=== PATIENT | male | born 2000 | race Caucasian/White ===

== ENCOUNTER 2021-03-14 19:45 | Emergency (ER) | payer OTHER ==
[2021-03-14 19:54] VITALS: BP 148/76
--- NOTE | 2021-03-14 21:04 | ED Physician Documentation ---
PD HPI UPPER EXT INJURY - Stated complaint Stated Complaint: RT SHOULDER INJ - Chief complaint Chief Complaint: Ext Problem - History obtained from History obtained from: Patient - History of Present Illness Location: Right, Shoulder Type of injury: Other (no injury) Where injury occurred: Work Timing - onset: Enter time (13:00), Today Timing - details: Abrupt onset Improved by: Rest Worsened by: Moving, Palpating Associated symptoms: No: Weakness, Numbness, Tingling, Swelling, Discolored Recently seen: Not recently seen - Additonal information Additional information: patient c/o sudden onset right shoulder pain approximately 1 PM when lifting heavy equipment. He says that the shoulder was "sore" the past few weeks without causative incident. He is right-hand dominant. Review of Systems Musculoskeletal: reports: Joint pain. denies: Neck pain, Back pain, Extremity pain, Extremity swelling, Joint swelling Neurologic: denies: Focal weakness, Numbness PD PAST MEDICAL HISTORY - Past Medical History Past Medical History: No - Past Surgical History Past Surgical History: Yes - Allergies Allergies/Adverse Reactions: Allergies Allergy/AdvReac Type Severity Reaction Status Date / Time No Known Drug Allergies Allergy Verified 03/14/21 19:56 - Social History Does the pt smoke?: Yes Smoking Status: Current every day smoker Does the pt drink ETOH?: Yes Does the pt have substance abuse?: No - Immunizations Immunizations are current?: Yes PD ED PE NORMAL - Vitals Vital signs reviewed: Yes - General General: Alert and oriented X 3, No acute distress, Well developed/nourished - Derm Derm: Normal color, Warm and dry - Extremities Extremities: No deformity, No edema - Neuro Neuro: No motor deficit, No sensory deficit PD ED PE EXPANDED - Extremities Extremities: Tenderness (right shoulder TTP anterior and lateral surfaces), Other (FROM but pain is exacerbated with abduction, flexion at shoulder) Results - Vitals Vitals: Vital Signs - 24 hr 03/14/21 03/14/21 19:50 22:30 Temperature 36.1 C L Heart Rate 82 71 Respiratory 17 15 Rate Blood Pressure 148/76 H O2 Saturation 98 97 Oxygen O2 Source Room air - Rads (name of study) right shoulder xrays Radiology: Prelim report reviewed, See rad report PD MEDICAL DECISION MAKING - ED course Complexity details: reviewed results, re-evaluated patient, considered differential, d/w patient ED course: Sudden onset right shoulder pain when heavy lifting this evening. Normal right shoulder xrays. Will treat as shoulder sprain with splint and rest, follow up with primary care provider for reevaluation after 2-3 days Departure - Departure Disposition: 01 Home, Self Care Clinical Impression: Shoulder sprain Condition: Good Instructions: ED Sprain Shoulder, ED Sling Follow-Up: [facility]go[facility] [Provider Group] Comments: The xrays are normal, which is expected for a sprain; in other words, normal xrays are reassuring but does not mean there is no injury. Most patients with normal xrays with suspected sprain just need a few days for the injury to resolve. Sometimes it can take a week or longer. The sling should help speed the healing process. Some sprains are more complicated and need more treatment than this. Follow up with your primary care provider for reevaluation of the shoulder injury. Forms: Activity restrictions Discharge Date/Time: 03/14/21 22:30
--- NOTE | 2021-03-14 21:56 | XRAY Report ---
PROCEDURE: Shoulder 3 View RT INDICATIONS: RIGHT shoulder pain TECHNIQUE: 3 views of the shoulder were acquired. COMPARISON: None. FINDINGS: Bones: No fractures or dislocations. No suspicious bony lesions. Visualized ribs appear intact. Soft tissues: No suspicious soft tissue calcifications. IMPRESSION: No acute finding. Reviewed by: Otis Andre MD on 03/14/2021 9:55 PM PST Approved by: Otis Andre MD on 03/14/2021 9:55 PM [facility] Station ID: [id number]
== END 2021-03-14 22:30 | disposition home or self-care (01) ==
LOC: ED 19:45
DX: S43.401A Unspecified sprain of right shoulder joint, initial encounter (principal); X50.0XXA Overexertion from strenuous movement or load, initial encounter; F17.200 Nicotine dependence, unspecified, uncomplicated
CPT/HCPCS: 99282; 99283

== ENCOUNTER 2021-05-19 11:51 | Emergency (ER) | payer OTHER ==
--- NOTE | 2021-05-19 12:13 | ED Physician Documentation ---
History of Present Illness - Stated complaint Stated Complaint: PANIC ATTACK - Chief complaint Chief Complaint: Cardiac - Additonal information Additional information: 20-year-old male is brought to the emergency department for evaluation after a panic attack. 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 Patient states that he has a history of panic attacks in the past. He states that there is just a lot going on but he does not want to be more forthcoming than that. He denies alcohol or drug use. Denies any thoughts of harm to self. He states that he tried therapy when he was younger but did not like it and is not interested in therapy today. At this time the panic attack has resolved and he no longer has chest pain or pressure. Patient currently on oxycodone and amoxicillin after wisdom tooth removal Review of Systems Constitutional: denies: Fever, Chills Ears: reports: Reviewed and negative Throat: reports: Reviewed and negative Cardiac: reports: Chest pain / pressure, Palpitations Respiratory: reports: Reviewed and negative GI: reports: Reviewed and negative : reports: Reviewed and negative Skin: reports: Reviewed and negative Musculoskeletal: reports: Reviewed and negative Neurologic: reports: Reviewed and negative Psychiatric: reports: Anxiety. denies: Depressed, Suicidal, Homicidal, Hallucinations, Delusions, Insomnia PD PAST MEDICAL HISTORY - Past Surgical History Past Surgical History: Yes - Allergies Allergies/Adverse Reactions: Allergies Allergy/AdvReac Type Severity Reaction Status Date / Time No Known Drug Allergies Allergy Verified 03/14/21 19:56 - Social History Does the pt smoke?: Yes Smoking Status: Current every day smoker Does the pt drink ETOH?: Yes Does the pt have substance abuse?: No - Immunizations Immunizations are current?: Yes PD ED PE NORMAL - General General: Alert and oriented X 3, No acute distress, Well developed/nourished - HEENT HEENT: Atraumatic, Moist mucous membranes - Neck Neck: Supple, no meningeal sign, No adenopathy - Cardiac Cardiac: RRR, No murmur - Respiratory Respiratory: No respiratory distress - Abdomen Abdomen: Normal bowel sounds, Soft, Non tender - Back Back: No CVA TTP - Derm Derm: Normal color, Warm and dry - Extremities Extremities: No deformity, No tenderness to palpate - Neuro Neuro: Alert and oriented X 3, 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 Good eye contact. Calm demeanor. Forward thinking), Normal affect Results - Vitals Vitals: Vital Signs - 24 hr 05/19/21 05/19/21 11:52 12:21 Temperature 37.0 C Heart Rate 77 80 Respiratory 18 18 Rate Blood Pressure 133/79 H 117/73 O2 Saturation 100 100 Oxygen O2 Source Room air - EKG (time done) 1201 Rate: Rate (enter#) (76) Rhythm: NSR [place]: Normal Intervals: Normal OR QRS: Normal Ischemia: ST elevation c/w repol Compare to prior EKG: Old EKG unavailable Computer interpretation: Agree with computer - Labs Labs: Laboratory Tests 05/19/21 05/19/21 05/19/21 12:17 12:18 12:18 Sodium 137 Potassium 4.0 Chloride 102 Carbon Dioxide 27 Anion Gap 8.0 BUN 13 Creatinine 0.7 Estimated GFR (MDRD) 144 Glucose 93 Calcium 9.2 Troponin I High Sens < 2.3 L Urine Opiates Screen NEGATIVE Ur Oxycodone Screen POSITIVE H Urine Methadone Screen NEGATIVE Ur Propoxyphene Screen NEGATIVE Ur Barbiturates Screen NEGATIVE Ur Tricyclics Screen NEGATIVE Ur Phencyclidine Scrn NEGATIVE Ur Amphetamine Screen NEGATIVE U Methamphetamines Scrn NEGATIVE U Benzodiazepines Scrn NEGATIVE Urine Cocaine Screen NEGATIVE U Cannabinoids Screen NEGATIVE PD MEDICAL DECISION MAKING - ED course Complexity details: reviewed results, re-evaluated patient, considered differential, d/w patient ED course: 20-year-old male who is active duty [employer] presents emergency department after having a panic attack while at work this morning. He is scheduled to deploy to [place] in a few hours. He does report a previous history of anxiety and panic attacks. He has no thoughts of harm to himself or others. He did present with some chest pain as well. Reports that his father had a myocardial infarction at an early age. Here in the ER he appears very well. Free of chest pain at the time of evaluation. Screening EKG is nonischemic troponin is negative. Chest x-ray unremarkable. He contracts for safety. We discussed the concern for recurrent panic attack and worry. He declines to speak with the social staff worker and feels comforted knowing that his labs are unremarkable. He is requesting to be discharged home so that he may deploy. His [employer] is aware that he is here in the emergency department after having a panic attack. Patient is encouraged to follow-up with [facility] to discuss talk therapy to address his anxiety and worry but again he declines to speak with social work today Departure - Departure Disposition: Home, Self Care Clinical Impression: Panic attack Condition: Stable Record reviewed to determine appropriate education?: Yes Instructions: ED Panic Attack Comments: Popeye givens are seen today in the emergency department after having a panic attack while at work for the [employer]. Your screening labs and EKG are all essentially normal. While here in the emergency department your symptoms have started to resolve or improve. You have declined to speak with social work today. I do encourage you to discuss this ED visit with your [employer] as well as to consider mental health counseling and resources for longer-term management of anxiety and worry. If at any point you ever feel unsafe, feel that you are at risk to harm yourself or others please do not hesitate to reach out, call 911 or return immediately to the emergency department.
[2021-05-19 12:22] VITALS: BP 117/73
[2021-05-19 12:27] LABS: MUDS CUTOFF CONCENTRATIONS CUTOFF CONC BELOW:
[2021-05-19 12:34] LABS: CALCIUM 9.2 mg/dL (8.5-10.3); CREATININE 0.7 mg/dL (0.6-1.2)
--- OUTSIDE RECORDS SUMMARY | 2021-05-19 12:41 | EXTERNAL MEDICAL SUMMARY RPT | Continuity of Care Document ---
:2000 Author Organization [facility] Address [address] [place] [address] Phone Care Team Providers Name Role Phone LEANDRO OLSON, Seth Ledezma Unavailable Unavailabl e Allergies No information. Encounters No information. Medications No information. Problems date description facility 20210327 Tobacco smoking status [facility] All 20210327 Pain of right shoulder joint All 20210327 Pain in right shoulder All 20210327 Pain in joint involving shoulder region All 20210327 Never smoker All 20210327 MRI SHOULDER WO - LT All 20210327 Details of drug misuse behavior All 20210327 Alcohol use All Results No information. Vital Signs date measurement value source 20210327 weight_standard 219.4 lb 20210327 weight_metric 99.52 kg 20210327 temperature_standard 97.8 F 20210327 temperature_metric 36.56 C 20210327 respiration_rate 14 /min 20210327 height_standard 72 in 20210327 height_metric 182.88 cm 20210327 heart_rate 73 /min 20210327 BP_systolic 119 mm[Hg] 20210327 BP_diastolic 73 mm[Hg] 20210327 BMI 29.86 kg/m2
[2021-05-19 13:08] LABS: AMPHETAMINE SCREEN,URINE NEGATIVE (NEGATIVE); BARBITURATE SCREEN,UR NEGATIVE (NEGATIVE); BENZODIAZEPINES SCREEN, URINE NEGATIVE (NEGATIVE); COCAINE SCREEN URINE NEGATIVE (NEGATIVE); METHADONE SCREEN, URINE NEGATIVE (NEGATIVE); METHAMPHETAMINES SCREEN, URINE NEGATIVE (NEGATIVE); OPIATE SCREEN, URINE NEGATIVE (NEGATIVE); OXYCODONE SCREEN, URINE POSITIVE (NEGATIVE); PROPOXYPHENE SCREEN, URINE NEGATIVE (NEGATIVE); THC CANNABINOID SCREEN, URINE NEGATIVE (NEGATIVE); TRICYCLIC ANTIDEPRESSANT,URINE NEGATIVE (NEGATIVE)
== END 2021-05-19 13:20 | disposition home or self-care (01) ==
LOC: EDUNIT# → ED 11:51
DX: F41.0 Panic disorder [episodic paroxysmal anxiety] (principal); F17.200 Nicotine dependence, unspecified, uncomplicated
CPT/HCPCS: 36415; 80048; 80306; 84484; 93005; 99282; 99283

== ENCOUNTER 2021-12-25 16:07 | Emergency (ER) | payer OTHER ==
--- OUTSIDE RECORDS SUMMARY | 2021-12-25 16:40 | EXTERNAL MEDICAL SUMMARY RPT | Continuity of Care Document ---
:2000 Author Organization [facility] Address [address] [place] [address] Phone Care Team Providers Name Role Phone Unavailable Unavailable Unavailable Darin Ritter Robert Unavailable Unavailable Allergies No information. Encounters No information. Functional Status No information. Immunizations No information. Medications date description facility [id number]+0000 meloxicam All [id number]+0000 meloxicam All [id number]+0000 meloxicam All [id number]+0000 meloxicam All Problems No information. Procedures date description facility [id number]+0000 Visit Code Hold All Results/Labs No information. Social History No information. Vital Signs date measurement value units [id number]+0000 BMI BMI 27.77 kg/m2 80501645183315+0000 BP_diastolic BP_diastolic 74 mmHg [id number]+0000 BP_systolic BP_systolic 115 mmHg 74347904012190+0000 heart_rate heart_rate 76 /min 88286939674201+0000 height_metric height_metric 182.88 cm 65602077458007+0000 height_standard height_standard 72 in [id number]+0000 respiration_rate respiration_rate 18 /min 10839929980171+0000 temperature_metric temperature_metric 36.78 C [id number]+0000 temperature_standard temperature_standard 9 8.2 F 88311442952650+0000 weight_metric weight_metric 92.53 kg 92936672510686+0000 weight_standard weight_standard 204 lb
[2021-12-25 20:22] VITALS: BP 142/75
--- NOTE | 2021-12-25 20:30 | ED Physician Documentation ---
History of Present Illness - Stated complaint Stated Complaint: RT SHOULDER PX - Chief complaint Chief Complaint: Ext Problem - Additonal information Additional information: 21-year-old male presents emergency department for evaluation of acute right shoulder pain after using some strengthening bands at the gym and pushing forward when he felt a sudden pop in the shoulder. Since then he has some minimal pain with movement. No swelling. He reports ports a sprain injury about 10 months ago that has never fully healed. No fevers. No swelling. No trauma. Review of Systems Constitutional: reports: Reviewed and negative Cardiac: reports: Reviewed and negative Respiratory: reports: Reviewed and negative GI: reports: Reviewed and negative Skin: reports: Reviewed and negative Musculoskeletal: reports: Joint pain PD PAST MEDICAL HISTORY - Past Medical History Past Medical History: No - Past Surgical History Past Surgical History: Yes - Allergies Allergies/Adverse Reactions: Allergies Allergy/AdvReac Type Severity Reaction Status Date / Time No Known Drug Allergies Allergy Verified 03/14/21 19:56 - Social History Does the pt smoke?: Yes Smoking Status: Current every day smoker Does the pt drink ETOH?: Yes Does the pt have substance abuse?: No - Immunizations Immunizations are current?: Yes PD ED PE EXPANDED - General General: Alert, No acute distress - Extremities Extremities: Right shoulder (Mild tenderness with palpation of the anterior join t especially with movement. Negative drop arm and negative empty can. Nearly full range of motion.) Results - Vitals Vitals: Vital Signs - 24 hr 12/25/21 12/25/21 16:26 20:20 Temperature 36.5 C Heart Rate 87 81 Respiratory 16 16 Rate Blood Pressure 136/67 H 142/75 H O2 Saturation 98 100 Oxygen O2 Source Room air PD MEDICAL DECISION MAKING - ED course Complexity details: considered differential, d/w patient ED course: 21-year-old male presents emergency department for evaluation of acute right shoulder pain that developed when using a band for strengthening and stretch exercises at the gym. He felt a sudden pop in the anterior shoulder joint. On exam he has a negative drop arm and a negative empty can. I suspect he most likely has a sprain. Given the lack of trauma I deferred x-ray imaging. The patient is requesting an MRI but that is not indicated nor appropriate during today's ER visit. I making the recommendation that he follow-up closely with [facility] for the recommendation of follow-up with either orthopedist or to obtain the MRI. Departure - Departure Disposition: 01 Home, Self Care Clinical Impression: Sprain of shoulder, right Qualifiers: Encounter type: initial encounter Shoulder sprain type: other part of shoulder region Qualified Code(s): S43.491A - Other sprain of right shoulder joint, initial encounter Condition: Stable Record reviewed to determine appropriate education?: Yes Instructions: ED Sprain Shoulder Comments: Popeye you are seen today in the emergency department because you develop pain in your right shoulder after doing some band/stretching exercises at the gym. This seems to be a recurrent injury in the shoulder. An x-ray would not make sense today as we really do not have any suspicion for broken bone. As we discussed at the bedside the exam is pretty reassuring and this may be a simple sprain. I do recommend you take 500 mg of Tylenol or alternate with 600 mg of ibuprofen. If you find that the pain in the shoulder is not better after about 7 to 10 days [place] may medical may want to request an MRI of the shoulder to evaluate for rotator cuff tears. However that is not indicated today through the emergency department.
== END 2021-12-25 20:32 | disposition home or self-care (01) ==
LOC: ED 16:07
DX: S43.491A Other sprain of right shoulder joint, initial encounter (principal); X58.XXXA Exposure to other specified factors, initial encounter; Y93.B9 Activity, other involving muscle strengthening exercises; F17.200 Nicotine dependence, unspecified, uncomplicated
CPT/HCPCS: 99281; 99282

== ENCOUNTER 2022-03-29 09:32 | Outpatient (CLI) | payer OTHER ==
[2022-03-29] MEDS ORDERED: NALOXONE 0.4 MG/ML VIAL ONE (09:58)
[2022-03-29] MEDS ORDERED: LIDOCAINE-MPF 1% 5 ML VIAL ONE (09:58)
[2022-03-29] MEDS ORDERED: TRIAMCINOLONE 40 MG/ML VIAL ONE (09:59)
[2022-03-29] MEDS ORDERED: LIDOCAINE-MPF 1% 5 ML VIAL TD ONE (11:37)
[2022-03-29] MEDS ORDERED: NALOXONE 0.4 MG/ML VIAL IVP ONE (11:38)
[2022-03-29] MEDS ORDERED: TRIAMCINOLONE 40 MG/ML VIAL IM ONE (11:39)
--- NOTE | 2022-03-29 13:20 | Ultrasound Report ---
PROCEDURE: Injection Single Tendon INDICATIONS: PAIN IN RIGHT SHOULDER TECHNIQUE: The indications, alternatives, benefits, risks, and complications of the procedure were explained to the patient. Written informed consent was obtained and placed in the chart. The patient was placed in an appropriate position on the fluoroscopy table, and a site was chosen for percutaneous access un kirby ultrasound guidance. Local anesthetic was administered using a 1% lidocaine solution. A hypoder rodo or spinal needle was then used to access the symptomatic region. Appropriate location of the need le tip was confirmed by real time ultrasound imaging, followed by steroid administration. The needle was then withdrawn, and a bandage applied to the puncture site. FINDINGS: Area injected: Right biceps tendon Medications injected: 2 mL of 40 mg/mL Kenalog and 0.5% Ropivacaine mixture. Complications: None. IMPRESSION: Successful ultrasound guided administration of steroid and anaesthetic solution into the right proximal biceps tendon. Reviewed by: Blanca Hammer MD on 03/29/2022 1:19 PM PST Approved by: Blanca Hammer MD on 03/29/2022 1:19 PM PST Station ID: [id number]
== END 2022-03-29 09:33 | disposition home or self-care (01) ==
LOC: DI 09:32
PROVIDERS: ATTEND Orthopaedic Surgery
DX: M25.511 Pain in right shoulder (principal); G89.29 Other chronic pain
CPT/HCPCS: 20550

== ENCOUNTER 2022-07-05 21:57 | Emergency (ER) | payer OTHER ==
[2022-07-05] MEDS ORDERED: ONDANSETRON ODT 4 MG TABLET TL STA (22:34)
[2022-07-05] MEDS ORDERED: IBUPROFEN 600 MG TABLET PO STA (22:34)
--- NOTE | 2022-07-05 23:26 | ED Physician Documentation ---
History of Present Illness - Stated complaint Stated Complaint: NAUSEA/SWEAT/R SHOULDER PX - Chief complaint Chief Complaint: Abd Pain - History obtained from History obtained from: Patient - Additonal information Additional information: 21-year-old man presented to the emergency department for tingling in the fingers dizziness, hyperventilatory spell x2, as well as headache, nonbloody nonbilious nausea and vomiting and chills since yesterday. Patient states he has a history of anxiety and he thought he was having an anxiety attack. Also thinks he may be sick. PD PAST MEDICAL HISTORY - Past Surgical History Past Surgical History: Yes - Present Medications Home Medications: Ambulatory Orders Medication Instructions Recorded Confirmed Ondansetron Odt [Zofran] 4 mg TL Q6H PRN #10 tablet 07/05/22 - Allergies Allergies/Adverse Reactions: Allergies Allergy/AdvReac Type Severity Reaction Status Date / Time No Known Drug Allergies Allergy Verified 07/05/22 22:22 - Social History Does the pt smoke?: Yes Smoking Status: Current every day smoker Does the pt drink ETOH?: Yes Does the pt have substance abuse?: No - Immunizations Immunizations are current?: Yes PD ED PE NORMAL - Vitals Vital signs reviewed: Yes - General General: Alert and oriented X 3, No acute distress, Well developed/nourished - HEENT HEENT: Atraumatic, PERRL, EOMI - Neck Neck: Supple, no meningeal sign - Cardiac Cardiac: RRR - Respiratory Respiratory: No respiratory distress, Clear bilaterally - Abdomen Abdomen: Non tender, Non distended Results - Vitals Vitals: Vital Signs - 24 hr 07/05/22 22:09 Temperature 336.4 C H Heart Rate 83 Respiratory 17 Rate Blood Pressure 142/77 H O2 Saturation 99 Oxygen O2 Source Room air PD Medical Decision Making - ED course ED course: 21-year-old man presented to the emergency department for multiple medical symptoms. His exam was benign and his nausea improved with oral Zofran. Recommended to follow-up with flight surgeon. Return precautions given. Departure - Departure Disposition: 01 Home, Self Care Clinical Impression: Vomiting, Headache, Body aches, Anxiety Condition: Stable Instructions: ED Nausea Vomiting Prescriptions: Ondansetron Odt [Zofran] 4 mg TL Q6H PRN #10 tablet PRN Reason: Nausea / Vomiting Comments: You were seen in the emergency department for medical evaluation. Please follow[place]. You should not return to work until you are having 24 hours of improving symptoms. Return to the emergency department if you have other concerns. Electronic prescription for Zofran was sent to [facility] in [place]. Forms: Activity restrictions
[2022-07-05 23:38] VITALS: BP 130/76
== END 2022-07-05 23:37 | disposition home or self-care (01) ==
LOC: ED 21:57
DX: R51.9 Headache, unspecified (principal); M79.10 Myalgia, unspecified site; F41.9 Anxiety disorder, unspecified; R11.2 Nausea with vomiting, unspecified; F17.200 Nicotine dependence, unspecified, uncomplicated
CPT/HCPCS: 36415; 99282; 99283; A9270; Q0162